=== PATIENT | male | born 1950 | race Two or more races ===

== ENCOUNTER → 2023-08-24 | Outpatient (CLI) | payer MEDICARE, BC | END | disposition home or self-care (01) | LOC: RAD 10:23 | PROVIDERS: ATTEND Specialist | DX: I70.0 Atherosclerosis of aorta (principal); R07.1 Chest pain on breathing; W18.30XA Fall on same level, unspecified, initial encounter; Y93.89 Activity, other specified; Y92.89 Other specified places as the place of occurrence of the external cause; Y99.8 Other external cause status | CPT/HCPCS: 71046; 71100 ==

== ENCOUNTER 2023-10-27 09:20 | Outpatient (CLI) | payer MEDICARE, BC | END 2023-10-27 23:59 | disposition home or self-care (01) | LOC: RAD 09:20 | PROVIDERS: ATTEND Specialist | DX: M25.562 Pain in left knee (principal) | CPT/HCPCS: 73560 ==